=== PATIENT | male | born 1970 | race Hispanic/Latino ===

== ENCOUNTER 2022-11-06 10:14 | Outpatient (CLI) | payer OTHER | END 2022-11-06 10:15 | disposition home or self-care (01) | LOC: CSHULT 10:14 | PROVIDERS: ATTEND Urology | DX: N20.1 Calculus of ureter (principal); N28.1 Cyst of kidney, acquired; N35.912 Unspecified bulbous urethral stricture, male; N40.1 Benign prostatic hyperplasia with lower urinary tract symptoms | CPT/HCPCS: 74018; 76770 ==